=== PATIENT | male | born 2000 | race African-American/Black ===

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

== ENCOUNTER 2019-07-29 12:41 | Emergency (ER) | payer OTHER ==
[2019-07-29 14:29] VITALS: BP 122/71
--- NOTE | 2019-07-29 16:17 | UC ---
Respiratory Complaint HPI - HPI Summary HPI Summary: 19 year old male with no PMH present with chest pain with coughing, deep breathing. Patient noted to have illness ~ 1-2 weeks ago with runny nose, congestion, however now non-productive cough. no fever, chills, no feeling ill. Pain is left of substernal, scapular pain at times. - History of Current Complaint Chief Complaint: UCGeneralIllness Stated Complaint: CHEST CONGESTION,COUGH, LT SHOULDER PAIN Time Seen by Provider: 07/29/19 13:45 Hx Obtained From: Patient Onset/Duration: Sudden Onset, Lasting Days Timing: Constant Severity Currently: Mild Pain Intensity: 0 Pain Scale Used: 0-10 Numeric Character: Cough: Nonproductive Aggravating Factors: Deep Breaths Alleviating Factors: Upright Position Associated Signs And Symptoms: Negative: Dyspnea, Hemoptysis, Nasal Congestion, Hoarseness - Allergies/Home Medications Allergies/Adverse Reactions: Allergies Allergy/AdvReac Type Severity Reaction Status Date / Time Penicillins AdvReac Unknown Verified 07/29/19 13:19 Reaction Details Home Medications: Home Medications Ibuprofen TAB* [Advil TAB*] 200 mg PO Q6H PRN 07/29/19 [History Confirmed ] PMH/Surg Hx/FS Hx/Imm Hx Previously Healthy: Yes - Surgical History Surgical History: None - Family History Known Family History: Positive: Non-Contributory - Social History Alcohol Use: Occasionally Substance Use Type: None Smoking Status (MU): Never Smoked Tobacco Review of Systems All Other Systems Reviewed And Are Negative: Yes Constitutional: Negative: Fever, Chills, Fatigue Respiratory: Positive: Cough. Negative: Shortness Of Breath Cardiovascular: Positive: Chest Pain Musculoskeletal: Positive: Negative Psychological: Positive: Negative Is Patient Immunocompromised?: No Physical Exam Triage Information Reviewed: Yes Appearance: Well-Appearing, No Pain Distress, Well-Nourished Vital Signs: Initial Vital Signs Temp 99.3 F 07/29/19 13:14 Pulse 76 07/29/19 13:14 Resp 20 07/29/19 13:14 BP 128/105 07/29/19 13:14 Pulse Ox 99 07/29/19 13:14 Vital Signs Reviewed: Yes Eyes: Positive: Conjunctiva Clear ENT: Positive: Pharynx normal, TMs normal, Uvula midline. Negative: TM bulging , TM dull, TM red, Tonsillar swelling, Tonsillar exudate, Sinus tenderness Neck: Positive: Supple, Nontender, Enlarged Nodes @ - b/l anterior cervical, firm ~1cm mobile non-tender LAD Respiratory: Positive: Chest non-tender, Lungs clear, No respiratory distress, No accessory muscle use, Decreased breath sounds - ALVARO. Negative: Respiratory distress, Crackles, Rhonchi, Stridor, Wheezing Cardiovascular: Positive: RRR Psychological Exam: Normal Skin Exam: Normal Respiratory Course/Dx - Course Course Of Treatment: Radiograph- concerning for PNA vs Mass, with patients LAD and chest pain, he was sent to [place] [facility] for further imaging, evaluation. Discussed with patients mother and roommate who will be driving patient. [facility] ER called, reported case to ARLENE Kaye - Differential Dx/Diagnosis Differential Diagnosis/HQI/PQRI: Lower Resp Infection, Sinusitis Provider Diagnosis: Lung mass Discharge ED - Sign-Out/Discharge Documenting (check all that apply): Patient Departure All imaging exams completed and their final reports reviewed: Yes - Discharge Plan Condition: Good Disposition: HOME Referrals: No Primary Care Phys,NOPCP [Primary Care Provider] - [facility] [Outside] Additional Instructions: Due to large medastinal mass, you have been sent to ER for further evaluation/ work up. Please take disc with you. - Billing Disposition and Condition Condition: GOOD Disposition: Home
== END 2019-07-29 14:43 | disposition home or self-care (01) ==
LOC: UCCORT 12:41
DX: R91.8 Other nonspecific abnormal finding of lung field (principal); R05 Cough; R07.89 Other chest pain; Z88.0 Allergy status to penicillin
CPT/HCPCS: 71046; 93005; 99212; G0463